=== PATIENT | male | born 1955 | race Caucasian/White ===

== ENCOUNTER 2024-06-07 14:00 | Emergency (ER) | payer MEDICARE, OTHER ==
[~2024-06-07] VITALS: Ht 170.2 cm; Wt 68.0 kg
[2024-06-07 14:56] LABS: BASOPHILS % (AUTO) 0.2 % (0.0-2.0); EOSINOPHILS % (AUTO) 0.3 % (0.0-7.0); HEMATOCRIT 38.7 % (36.7-47.1); HEMOGLOBIN 12.4 g/dL (12.5-16.3); LYMPHOCYTES % (AUTO) 8.3 % (20.5-51.5); MEAN CORPUSCULAR HEMOGLOBIN 29.3 uug (23.8-33.4); MEAN CORPUSCULAR HGB CONC 32 g/dL (32.5-36.3); MEAN CORPUSCULAR VOLUME 91.2 fL (73.0-96.2); MONOCYTES # (AUTO) 0.7 K/uL (0.1-1.30); MONOCYTES % (AUTO) 5.7 % (0.0-11.0); NEUTROPHILS # (AUTO) 10.4 K/uL (1.8-8.9); NEUTROPHILS % (AUTO) 85.5 % (38.5-71.5); PLATELET COUNT (AUTO) 236 K/uL (152-348); RED BLOOD CELL COUNT(AUTO) 4.24 MIL/uL (4.06-5.63); RED CELL DISTRIBUTION WIDTH 13.9 % (12.1-16.2); WHITE BLOOD COUNT (AUTO) 12.2 K/uL (3.6-10.2)
[2024-06-07 14:57] LABS: DIFFERENTIAL COMMENT 1
[2024-06-07 15:02] LABS: CALCIUM 8.8 mg/dL (8.5-10.1); CARBON DIOXIDE 23 mmol/L (21-32); CHLORIDE 99 mmol/L (98-107); CREATININE 0.8 mg/dL (0.6-1.3); GLUCOSE 85 mg/dL (74-106); POTASSIUM 4.3 mmol/L (3.5-5.1); SODIUM SERUM 136 mmol/L (136-145); UREA NITROGEN, BLOOD 13 mg/dL (7-18)
[2024-06-07] MEDS: IV NORMAL SALINE 1000 ML BAG IV ONE (15:11)
[2024-06-07 15:16] LABS: ALANINE AMINOTRANSFERASE 16 U/L (16-63); ALBUMIN 2.8 g/dL (3.4-5.0); ALKALINE PHOSPHATASE 78 U/L (50-136); ASPARTATE AMINOTRANSFERASE 16 U/L (15-37); BILIRUBIN,DIRECT 0.4 mg/dL (0.0-0.2); BILIRUBIN,TOTAL 0.8 mg/dL (0.2-1.0); TOTAL PROTEIN, SERUM 6.7 g/dL (6.4-8.2)
[2024-06-07] MEDS ORDERED: OMEP20TA20 PO (17:12)
[2024-06-07] MEDS ORDERED: ONDA4TAB5 PO (17:12)
[2024-06-07] MEDS ORDERED: HEPARIN SODIUM,PORCINE 5,000 UNITS/ML VIAL ONE (17:29)
[2024-06-07] MEDS ORDERED: HEPARIN/D5W DRIP 500 ML ONE (17:29)
[2024-06-07] MEDS: HEPARIN SODIUM,PORCINE/PF 500 UNIT/5 ML SYR IV ONE (17:34)
[2024-06-07 18:00] VITALS: O2SAT 97
[2024-06-07] MEDS: HEPARIN/D5W DRIP 500 ML IV ONE (18:03)
[2024-06-07] MEDS: ASPIRIN 81 MG TAB.CHEW PO ONE (18:08)
== END 2024-06-07 20:44 | disposition short-term general hospital (02) ==
LOC: ER 14:00
DX: I21.4 Non-ST elevation (NSTEMI) myocardial infarction (principal); R55 Syncope and collapse; R51.9 Headache, unspecified; K21.9 Gastro-esophageal reflux disease without esophagitis; Z79.899 Other long term (current) drug therapy
CPT/HCPCS: 99291; 93307; 96374; 70450; 71045; 96361; 80076; 80048; 83880; 85025; 85610; 85730; 84484 ×2; 36415; 93005; 83605; J1644 ×2; J7040; A4606; A4663